=== PATIENT | female | born 1995 | race Two or more races ===

== ENCOUNTER 2016-11-15 13:04 | Emergency (ER) | payer BC ==
[~2016-11-15] VITALS: Ht 167.6 cm; Wt 63.5 kg
[2016-11-15 13:04] VITALS: BP 113/63
== END 2016-11-15 14:28 | disposition home or self-care (01) ==
LOC: ER 13:13
DX: S02.5XXA Fracture of tooth (traumatic), initial encounter for closed fracture (principal); S00.12XA Contusion of left eyelid and periocular area, initial encounter; L01.00 Impetigo, unspecified; W01.0XXA Fall on same level from slipping, tripping and stumbling without subsequent striking against object, initial encounter; Y93.89 Activity, other specified; Y92.89 Other specified places as the place of occurrence of the external cause; Y99.9 Unspecified external cause status
CPT/HCPCS: 99283; A4606; Z7610